=== PATIENT | male | born 1960 | race Caucasian/White ===

== ENCOUNTER 2016-02-27 14:32 | Outpatient (CLI) | payer OTHER ==
[2015-09-27 13:29] VITALS: BP 109/72
== END 2016-02-27 14:33 ==
LOC: CARD 14:32
PROVIDERS: ATTEND Internal Medicine Cardiovascular Disease
DX: R53.83 Other fatigue (principal)

== ENCOUNTER 2016-03-26 16:28 | Outpatient (CLI) | payer OTHER ==
[2015-09-27 13:29] VITALS: BP 109/72
== END 2016-03-26 16:30 ==
LOC: NEPHRO 16:28
PROVIDERS: ATTEND Internal Medicine Nephrology
DX: E11.9 Type 2 diabetes mellitus without complications (principal); R80.9 Proteinuria, unspecified
CPT/HCPCS: 99213

== ENCOUNTER 2016-04-07 09:05 | Emergency (ER) | payer OTHER ==
[2016-04-07] MEDS ORDERED: diphenhydrAMINE HCL 25 MG TABLET PO ONE (09:31)
[2016-04-07] MEDS: methylPREDNISolone SOD SUCC 125 MG/2 ML VIAL IM ONE (09:36)
[2016-04-07] MEDS: diphenhydrAMINE SOLUTION 12.5 MG/5 ML 60ML BOTTLE PO ONE (09:36)
--- NOTE | 2016-04-07 10:24 | ED Physician Documentation ---
General Adult - HISTORIAN Historian: patient - HPI Stated Complaint: tongue swelling Chief Complaint: General Adult Onset: days ago (1) Timing: still present Severity: moderate Further Comments: yes (Pt is a 55 yo male with tongue swelling that began last evening shortly after he ate some very hot chicken at a restaurant. The food was so hot that it melted the styrofoam container that it came in. Swelling began within minutes after eating. Pt said he thinks he was eating hot grease. Pt also is on an LEONOR inhibitor, which he has taken for years without side effects.) - ROS CONST: no problems EYES/ENT: other (tongue swelling) CVS/RESP: none GI/: none MS/SKIN/LYMPH: none - PAST HX Past History: other (Anxiety, DM, Depression/Anxiety, HLD, HTN) Allergies/Adverse Reactions: Allergies Allergy/AdvReac Type Severity Reaction Status Date / Time No Known Allergies Allergy Verified 04/07/16 09:19 Home Medications: Ambulatory Orders Medication Instructions Recorded Citalopram Hydrobromide 40 mg PO DAILY 04/07/16 [Citalopram HBr] Clonazepam [Klonopin] 0.5 mg PO BID 04/07/16 Furosemide [Lasix] 40 mg PO DAILY 04/07/16 Gemfibrozil [Lopid] 600 mg PO DAILY 04/07/16 Lisinopril [Prinivil] 20 mg PO QD 04/07/16 Metformin HCl [Metformin HCl ER] 1,500 mg PO BID 04/07/16 gliPIZIDE ER [Glucotrol Xl] 10 mg PO 0730 04/07/16 - SOCIAL HX Smoking History: cigarettes - FAMILY HX Family History: No - VITAL SIGNS Vital Signs: Vital Signs Temp Pulse Resp BP Pulse Ox 98.2 F 102 H 20 100/54 97 04/07/16 09:22 04/07/16 09:22 04/07/16 09:22 04/07/16 09:22 04/07/16 09:22 - REVIEWED ASSESSMENTS Nursing Assessment Reviewed: Yes Vitals Reviewed: Yes Progress - Progress Progress: Solu-medrol 125 mg IM in Er Benadryl 25 mg po x 1 improved Rx Benadryl 25 mg (available over the counter). Take one or two every 6 hrs. Rx Prednisone 50 mg. Take one by mouth once daily for 4 days. ED Results Lab/Radiology - Orders Orders: ED Orders Category Date Time Status diphenhydrAMINE HCL [Benadryl] Med 04/07/16 09:31 Discontinued 25 mg PO .STK-MED ONE diphenhydrAMINE SOLUTION [Benadryl] Med 04/07/16 09:31 Once 25 mg PO NOW ONE methylPREDNISolone SOD SUCC [Solu-MEDROL] Med 04/07/16 09:30 Once 125 mg IM NOW ONE General Adult Physical Exam - PHYSICAL EXAM GENERAL APPEARANCE: mild distress EENT: eye inspection normal, other (anterior tongue swelling; no airway compromise; able to swallow.) NECK: normal inspection, supple RESPIRATORY: no resp distress, chest non-tender CVS: reg rate & rhythm, heart sounds normal BACK: normal inspection SKIN: warm/dry, normal color EXTREMITIES: non-tender, normal range of motion NEURO: oriented X3, motor nml, sensation nml Discharge Clincal Impression: Tongue swelling Referrals: Kalpana Polk, PRN [Primary Care Provider] - Home Medications: Ambulatory Orders Citalopram Hydrobromide [Citalopram HBr] 40 mg PO DAILY 04/07/16 Clonazepam [Klonopin] 0.5 mg PO BID 04/07/16 Furosemide [Lasix] 40 mg PO DAILY 04/07/16 Gemfibrozil [Lopid] 600 mg PO DAILY 04/07/16 Lisinopril [Prinivil] 20 mg PO QD 04/07/16 Metformin HCl [Metformin HCl ER] 1,500 mg PO BID 04/07/16 gliPIZIDE ER [Glucotrol Xl] 10 mg PO 0730 04/07/16 Condition: Good Disposition: 01 HOME, SELF-CARE Decision to Admit: NO Decision Time: 10:24
[2016-04-07 10:38] VITALS: BP 109/62
== END 2016-04-07 10:36 | disposition home or self-care (01) ==
LOC: ED 09:05
DX: R60.9 Edema, unspecified (principal)
CPT/HCPCS: J2930; Q0163; 96372; 99283

== ENCOUNTER 2016-04-26 16:07 | Outpatient (CLI) | payer OTHER ==
--- NOTE | 2016-04-26 17:53 | Diagnostic Imaging Report ---
[facility] [address] [facility].[address] [address] Report Submission Date: Apr 26, 2016 5:50:18 PM RELATIONS LIAISON Patient Study Name: GLORIA RED Date: Apr 26, 2016 4:26:03 PM RELATIONS LIAISON Modality Type: CR Gender: M Description: PELVIS : 60 Institution: [facility] Physician: HANNAH WOODRUFF (CONTACT CENTER REPRESENTATIVE) - OP Pelvis and bilateral hips Clinical history pain, difficulty ambulating Technique AP supine pelvis, AP and frog leg of both hips Findings: The pelvis is intact. There is no fracture lytic change. Osteoarthritis present at the sacroiliac joints. Mild arthritic changes are present at the symphysis pubis. the right hip shows joint space narrowing and periarticular spurring.. Flattening of the superior head of the femur and subchondral cyst formation present.. Pelvic and femoral artery calcification is present. No fracture is seen The left hip also shows degenerative arthritis with flattening of thefemoral head, subchondral cyst formation. juxta-articular sclerosis joint space narrowing and periarticular spurring. 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
== END 2016-04-26 16:10 ==
LOC: RAD 16:07
PROVIDERS: ATTEND Nurse Practitioner Family
DX: M25.551 Pain in right hip (principal)
CPT/HCPCS: 73521

== ENCOUNTER 2016-10-22 15:14 | Outpatient (CLI) | payer OTHER | END 2016-10-22 15:15 | LOC: NEPHRO 15:14 | PROVIDERS: ATTEND Internal Medicine Nephrology | DX: N28.9 Disorder of kidney and ureter, unspecified (principal); R80.9 Proteinuria, unspecified | CPT/HCPCS: G0463 ==

== ENCOUNTER 2017-05-06 16:11 | Outpatient (CLI) | payer OTHER | END 2017-05-06 16:12 | LOC: NEPHRO 16:11 | PROVIDERS: ATTEND Internal Medicine Nephrology | DX: E11.9 Type 2 diabetes mellitus without complications (principal); R80.9 Proteinuria, unspecified | CPT/HCPCS: 99213 ==

== ENCOUNTER 2017-05-09 13:26 | Outpatient (CLI) | payer OTHER | END 2017-05-09 13:27 | LOC: POD 13:26 | PROVIDERS: ATTEND Podiatrist | DX: B35.1 Tinea unguium (principal); M79.674 Pain in right toe(s); M79.675 Pain in left toe(s); E11.42 Type 2 diabetes mellitus with diabetic polyneuropathy | CPT/HCPCS: 99213 ==

== ENCOUNTER 2017-08-29 13:49 | Outpatient (CLI) | payer OTHER | END 2017-08-29 13:54 | LOC: POD 13:49 | PROVIDERS: ATTEND Podiatrist | DX: B35.1 Tinea unguium (principal); M79.674 Pain in right toe(s); M79.675 Pain in left toe(s); E11.42 Type 2 diabetes mellitus with diabetic polyneuropathy | CPT/HCPCS: 99213 ==

== ENCOUNTER 2017-11-11 14:18 | Outpatient (CLI) | payer OTHER | END 2017-11-11 14:20 | LOC: NEPHRO 14:18 | PROVIDERS: ATTEND Internal Medicine Nephrology | DX: E11.9 Type 2 diabetes mellitus without complications (principal); R80.9 Proteinuria, unspecified; E11.319 Type 2 diabetes mellitus with unspecified diabetic retinopathy without macular edema; N18.9 Chronic kidney disease, unspecified; N17.9 Acute kidney failure, unspecified | CPT/HCPCS: 99213 ==

== ENCOUNTER 2018-08-18 17:04 | Emergency (ER) | payer OTHER ==
--- NOTE | 2018-08-18 17:32 | ED Physician Documentation ---
General Adult - HISTORIAN Historian: patient - HPI Chief Complaint: General Adult Additional Information: Patient is a 58-year-old male who presents to the ER for "dehydration". He states that he saw PCP today and had labs drawn. He states that he was told "your blood is running slow so you are dehydrated". I asked what symptoms brought him to the ER and he stated "I am just tired". Denies any f/c/n/v/d. Onset: hours Timing: better Severity: mild Modifying Factors: Does not drink water- only coffee - ROS CONST: other ("tired") EYES/ENT: none CVS/RESP: none GI/: none MS/SKIN/LYMPH: none NEURO/PSYCH: denies: fainting, dizziness - PAST HX Past History: hypertension Other History: diabetes Type 2, other (anxiety and depression, hypothyroid) Surgeries/Procedures: other (hip surgery) Immunizations: UTD Allergies/Adverse Reactions: Allergies Allergy/AdvReac Type Severity Reaction Status Date / Time No Known Allergies Allergy Verified 04/07/16 09:19 Home Medications: Ambulatory Orders Medication Instructions Recorded Citalopram Hydrobromide 40 mg PO DAILY 04/07/16 [Citalopram HBr] Clonazepam [Klonopin] 0.5 mg PO BID 04/07/16 Furosemide [Lasix] 40 mg PO DAILY 04/07/16 Gemfibrozil [Lopid] 600 mg PO DAILY 04/07/16 Lisinopril [Prinivil] 20 mg PO QD 04/07/16 Metformin HCl [Metformin HCl ER] 1,500 mg PO BID 04/07/16 glipiZIDE ER [Glucotrol Xl] 10 mg PO 0730 04/07/16 - SOCIAL HX Smoking History: greater than 1 pack/day Alcohol Use: rarely Drug Use: none - FAMILY HX Family History: No - VITAL SIGNS Vital Signs: Vital Signs Temp Pulse Resp BP Pulse Ox 109/62 04/07/16 10:36 - REVIEWED ASSESSMENTS Nursing Assessment Reviewed: Yes Vitals Reviewed: Yes Progress - Progress Progress: 19:00 Patient states that he feels better after IV fluids. ED Results Lab/Radiology - Orders Orders: ED Orders Category Date Time Status Place IV Lock 1T Care 08/18/18 17:19 Active CBC/PLATELET/DIFF Routine Lab 08/18/18 Ordered CMP Routine Lab 08/18/18 Ordered URINALYSIS Routine Lab 08/18/18 Ordered 0.9 % Sodium Chloride [Normal Saline] 500 ml Med 08/18/18 17:19 Active IV NOW General Adult Physical Exam - PHYSICAL EXAM GENERAL APPEARANCE: no distress EENT: eye inspection normal, ENT inspection normal, TIMA, dry mucous membranes NECK: normal inspection, supple RESPIRATORY: breath sounds normal CVS: heart sounds normal ABDOMEN: normal bowel sounds, non-tender BACK: normal inspection SKIN: warm/dry, normal color EXTREMITIES: non-tender, normal range of motion NEURO: oriented X3, CN's nml as tested, motor nml, sensation nml, mood/affect nml, cognition normal Discharge Clincal Impression: Dehydration Referrals: Kalpana Polk, PRN [Primary Care Provider] - 2 Days Additional Instructions: Increase water intake Healthy nutritious diet Follow up with PCP as needed Condition: Good Disposition: 01 HOME, SELF-CARE Decision to Admit: NO Decision Time: 19:18
[2018-08-18 17:55] LABS: BASOPHILS % 0.6 % (0.0-1.5); NEUTROPHILS # 5.9 # k/uL (1.4-7.7)
[2018-08-18] MEDS: 0.9 % SODIUM CHLORIDE 500 ML IV ONE (18:02)
[2018-08-18] MEDS: 0.9 % SODIUM CHLORIDE 1,000 ML IV ONE (18:02)
[2018-08-18 18:11] LABS: eGFR (Non-African) 53
[2018-08-18 19:18] VITALS: BP 122/74
== END 2018-08-18 19:08 | disposition home or self-care (01) ==
LOC: ED 17:04
DX: E86.0 Dehydration (principal)
CPT/HCPCS: 80053; 85025; 96360; 99282; 99284; J7030; S1016